=== PATIENT | male | born 1965 | race Caucasian/White ===

== ENCOUNTER 2018-10-27 19:25 | Emergency (ER) | payer BC ==
--- NOTE | 2018-10-27 19:37 | EDM.PDOC ---
ED HPI GENERAL MEDICAL PROBLEM - General Chief Complaint: Lower Extremity Injury/Pain Stated Complaint: FELL Time Seen by Provider: 10/27/18 19:30 Source of Information: Reports: Patient History Limitations: Reports: No Limitations - History of Present Illness INITIAL COMMENTS - FREE TEXT/NARRATIVE: Dany comes into [facility] ED with a R ankle injury that occurred this evening when he tripped over his pet dogs whlle descending a flight of stairs. There was no LOC. He has an obvious deformity at the tibial-talar junction, painful to any maneuver. He has taken no meds. right ankle Pain Score (Numeric/FACES): 8 - Related Data Allergies Allergy/AdvReac Type Severity Reaction Status Date / Time No Known Allergies Allergy Verified 10/27/18 19:30 Home Meds: Home Meds NK [No Known Home Meds] 10/27/18 [History] Review of Systems - Review of Systems Review Of Systems: ROS reveals no pertinent complaints other than HPI. ED EXAM, GENERAL - Physical Exam Exam: See Below Exam Limited By: No Limitations General Appearance: Alert, WD/WN, Anxious, Moderate Distress Head: Atraumatic, Normocephalic Neck: Normal Inspection, Supple, Non-Tender, Full Range of Motion Respiratory/Chest: Lungs Clear, Chest Non-Tender Cardiovascular: Regular Rate, Rhythm, No Murmur Back Exam: Normal Inspection Extremities: Limited Range of Motion (R ankle: deformity at tibial-talar junction with possible fx-dislocation, CMS intact) Neurological: Alert, Oriented, CN II-XII Intact, Normal Cognition, No Motor/ Sensory Deficits Psychiatric: Normal Affect, Anxious Skin Exam: Warm, Dry, Intact, Normal Color, No Rash Lymphatic: No Adenopathy ED TRAUMA EXTREMITY PROCEDURES - Splinting Right Lower Extremity Splint Site: R ankle Pre-Procedure NV Status: Normal Post-Procedure NV Status: Normal Splint Material: Other (Ortho-Cast) Splint Design: Sugar Tong, Posterior Applied & Form Fitted By: Provider Provider Post-Splint Application NV Check: NV Status Normal Complications: No Course - Vital Signs Text/Narrative:: Following assessment, I administered Fentanyl 100 mcg IM prior to x rays: confirm fx/dislocation of tibio-talar junction, fx fibular. Case was discussed with Dr. Castro at [facility], and he will be transferred for further orthopedic managment. An additional Fentanyl 50 mcg IM administered just prior to transfer. Last Recorded V/S: Last Vital Signs Temp Pulse 106 H 10/27/18 19:30 Resp 16 10/27/18 19:30 BP 174/100 H 10/27/18 19:30 Pulse Ox 96 10/27/18 19:30 - Orders/Labs/Meds Orders: Active Orders 24 hr Category Date Time Status Ankle 2V Rt [CR] Stat Exams 10/27/18 19:58 Taken fentaNYL [Sublimaze] Med 10/27/18 20:20 Once 50 mcg IM ONETIME ONE Medication Orders Fentanyl (Sublimaze) 50 mcg IM ONETIME ONE Stop: 10/27/18 20:21 Meds: Medications Generic Name Dose Route Start Last Admin Trade Name Freq PRN Reason Stop Dose Admin Fentanyl 50 mcg 10/27/18 20:20 Sublimaze IM 10/27/18 20:21 ONETIME ONE Discontinued Medications Generic Name Dose Route Start Last Admin Trade Name Freq PRN Reason Stop Dose Admin Fentanyl 100 mcg 10/27/18 19:33 10/27/18 19:38 Sublimaze IM 10/27/18 19:34 100 mcg ONETIME ONE Administration Departure - Departure Time of Disposition: 20:19 Disposition: DC/Tfer to Other 70 Condition: Fair Clinical Impression: Closed fracture of ankle - Discharge Information *PRESCRIPTION DRUG MONITORING PROGRAM REVIEWED*: Not Applicable *COPY OF PRESCRIPTION DRUG MONITORING REPORT IN PATIENT LEXI: Not Applicable Forms: ED Department Discharge - Problem List & Annotations (1) Dislocation of ankle, right, closed SNOMED Code(s): 230707604 Code(s): S93.04XA - DISLOCATION OF RIGHT ANKLE JOINT, INITIAL ENCOUNTER Status: Acute Current Visit: Yes Annotation/Comment:: Well padded splint applied, to see Ortho tonight at [facility]. (2) Closed fracture of ankle SNOMED Code(s): 66276269 Code(s): S82.899A - OTH FRACTURE OF UNSP LOWER LEG, INIT FOR CLOS FX Status : Acute Current Visit: Yes Annotation/Comment:: Well padded splint applied, to see Ortho at [facility] tonight. - My Orders Last 24 Hours: My Active Orders 10/27/18 19:58 Ankle 2V Rt [CR] Stat 10/27/18 20:20 fentaNYL [Sublimaze] 50 mcg IM ONETIME ONE - Assessment/Plan Last 24 Hours: My Active Orders 10/27/18 19:58 Ankle 2V Rt [CR] Stat 10/27/18 20:20 fentaNYL [Sublimaze] 50 mcg IM ONETIME ONE Plan: Follow up with orthopedist.
[2018-10-27] MEDS: fentaNYL 100 MCG/2 ML SDV IM ONE ×2 (19:38→20:18)
== END 2018-10-27 20:34 | disposition other institution (70) ==
LOC: FB.ED 19:25
DX: S82.841A Displaced bimalleolar fracture of right lower leg, initial encounter for closed fracture (principal); W01.0XXA Fall on same level from slipping, tripping and stumbling without subsequent striking against object, initial encounter
CPT/HCPCS: 29515; 73600; 96372; 99284; J3010

== ENCOUNTER 2021-11-23 06:38 | Day surgery (SDC) | payer BC ==
[2021-11-23] MEDS ORDERED: Propofol 200 MG/20 ML SDV IV ONE (06:39)
[2021-11-23] MEDS ORDERED: Sodium Chloride 0.9% 10 ML Syringe FLUSH PRN (06:45)
[2021-11-23] MEDS ORDERED: Lactated Ringers 1,000 ML IV SCH (06:45)
== END 2021-11-23 09:11 | disposition home or self-care (01) ==
LOC: FB.SDS 06:38
PROVIDERS: ATTEND Surgery
DX: Z12.11 Encounter for screening for malignant neoplasm of colon (principal); E66.01 Morbid (severe) obesity due to excess calories; Z86.010 Personal history of colon polyps; Z79.899 Other long term (current) drug therapy; Z98.890 Other specified postprocedural states; Z68.36 Body mass index [BMI] 36.0-36.9, adult
CPT/HCPCS: J2704; J7120

== ENCOUNTER 2024-04-17 16:45 | Emergency (ER) | payer BC ==
[2024-04-17] MEDS ORDERED: Amoxicillin/Clavulanate K 875-125 MG Tab PO ONE (16:46)
== END 2024-04-17 17:43 | disposition home or self-care (01) ==
LOC: FB.ED 16:45
DX: K04.7 Periapical abscess without sinus (principal)
CPT/HCPCS: 99283; A9270